=== PATIENT | male | born 1950 | race American Indian/Alaskan Native ===

== ENCOUNTER 2017-09-26 20:56 | Emergency (ER) | payer MEDICARE ==
[2017-09-27] MEDS ORDERED: MORPHINE IV ONE (00:37)
[2017-09-27] MEDS ORDERED: ZOFRAN IV ONE (00:37)
--- NOTE | 2017-09-27 00:42 | Emergency Department Report ---
ED Headache HPI - General Chief Complaint: Headache Stated Complaint: MIGRAINE Time Seen by Provider: 09/27/17 00:03 Source: patient Exam Limitations: no limitations - History of Present Illness Timing/Duration: 24 hours Quality: moderate, throbbing Head Injury Location: frontal, temporal Recent Head Trauma: no recent headache/trauma, other (hx of migraine headaches ) Modifying Factors: improves with: other (none) Associated Symptoms: denies symptoms Allergies/Adverse Reactions: Allergies aspirin Allergy (Verified 09/26/17 21:06) Unknown ED Review of Systems ROS: Stated complaint: MIGRAINE Other details as noted in HPI Constitutional: denies: chills, fever Eyes: other (photophobia ) ENT: denies: ear pain, throat pain Respiratory: denies: cough, shortness of breath, wheezing Cardiovascular: denies: chest pain, palpitations Endocrine: no symptoms reported Gastrointestinal: denies: abdominal pain, nausea, diarrhea Genitourinary: denies: urgency, dysuria Musculoskeletal: denies: back pain, joint swelling, arthralgia Neurological: as per HPI. denies: paresthesias Psychiatric: denies: anxiety, depression Hematological/Lymphatic: denies: easy bleeding, easy bruising ED Past Medical Hx - Past Medical History Previous Medical History?: Yes Hx Hypertension: Yes Hx Renal Disease: Yes (not in dialysis) Hx Headaches / Migraines: Yes - Surgical History Past Surgical History?: No - Social History Smoking Status: Current Every Day Smoker Substance Use Type: None ED Physical Exam - General Limitations: No Limitations General appearance: alert, in no apparent distress - Head Head exam: Present: atraumatic, normocephalic - Eye Eye exam: Present: normal appearance, other (photophobia ) - ENT ENT exam: Present: mucous membranes moist - Neck Neck exam: Present: normal inspection - Respiratory Respiratory exam: Present: normal lung sounds bilaterally. Absent: respiratory distress - Cardiovascular Cardiovascular Exam: Present: regular rate, normal rhythm. Absent: systolic murmur, diastolic murmur, rubs, gallop - Extremities Exam Extremities exam: Present: normal inspection - Back Exam Back exam: Present: normal inspection - Neurological Exam Neurological exam: Present: alert, oriented X3 - Psychiatric Psychiatric exam: Present: normal affect, normal mood - Skin Skin exam: Present: warm, dry, intact, normal color. Absent: rash ED Course Vital Signs 09/26/17 09/27/17 21:00 01:16 Temperature 98.4 F Pulse Rate 83 Respiratory 17 18 Rate Blood Pressure 176/93 O2 Sat by Pulse 97 Oximetry - Reevaluation(s) Reevaluation #1: 09/27/17 02:16 Patient resting quietly in the room. CT head unremarkable. ED Medical Decision Making - Radiology Data Radiology results: report reviewed CT head unremarkable. - Medical Decision Making Migraine headache Chronic headache - Differential Diagnosis migraine headache Critical care attestation.: If time is entered above; I have spent that time in minutes in the direct care of this critically ill patient, excluding procedure time. ED Disposition Clinical Impression: Migraine headache Disposition: DC-01 TO HOME OR SELFCARE Is pt being admited?: No Does the pt Need Aspirin: No Condition: Stable Instructions: Migraine Headache (ED) Additional Instructions: Please follow up with your provider as scheduled. May restart your regularly scheduled medications. Referrals: IFTIKHAR ENRIQUEZ MD [Primary Care Provider] - 3-5 Days Time of Disposition: 02:19
--- NOTE | 2017-09-27 01:18 | Cat Scan Report ---
FINAL REPORT EXAM: CT HEAD/BRAIN WO CON HISTORY: headache SLUGGISH HARD TO WAKE UP TECHNIQUE: Routine axial imaging was obtained of the brain without IV contrast. FINDINGS: There is slightly diminished attenuation of the periventricular white matter compatible with chronic ischemic white matter changes. There is no evidence of acute stroke or hemorrhage. The ventricular system is normal in size. The basal cisterns appear normal. The visualized sinuses are clear. The mastoid air cells are well pneumatized. The calvarium appears intact. IMPRESSION: Chronic ischemic white matter changes noted. No evidence of acute stroke or hemorrhage.
[2017-09-27 02:59] VITALS: BP 161/86
== END 2017-09-27 02:59 | disposition home or self-care (01) ==
LOC: ED 20:56
DX: G43.909 Migraine, unspecified, not intractable, without status migrainosus (principal); I10 Essential (primary) hypertension; F17.200 Nicotine dependence, unspecified, uncomplicated
CPT/HCPCS: 70450; 96374; 96375; 99284; J2270; J2405